=== PATIENT | male | born 1955 | race Caucasian/White ===

== ENCOUNTER 2018-03-16 21:10 | Observation (INO) | payer OTHER ==
[2018-03-16] MEDS ORDERED: diltiaZEM INJ 5 MG/ML VIAL IVP STA ×3 (21:20→23:01)
[2018-03-16] MEDS ORDERED: diltiaZEM INJ 5 MG/ML VIAL ONE ×2 (21:37→22:10)
[2018-03-16 21:47] LABS: BASOPHILS # (AUTO) 0.1 10^3/uL (0.0-0.1); BASOPHILS % (AUTO) 1.1 %; EOSINOPHILS # (AUTO) 0.1 10^3/uL (0.0-0.7); EOSINOPHILS % (AUTO) 0.7 %; HGB - HEMOGLOBIN 15.8 g/dL (14.0-18.0); LYMPHOCYTES % (AUTO) 16.8 %; MEAN CORPUSCULAR HEMOGLOBIN 29.2 pg (27.0-31.0); MEAN CORPUSCULAR HGB CONC 32.8 g/dL (32.0-36.0); MEAN CORPUSCULAR VOLUME 89.1 fL (80.0-94.0); MEAN PLATELET VOLUME 9.3 fL (7.4-11.4); MONOCYTES # (AUTO) 0.9 10^3/uL (0.0-1.0); MONOCYTES % (AUTO) 7.3 %; NEUTROPHILS # (AUTO) 8.9 10^3/uL (1.5-6.6); NEUTROPHILS % (AUTO) 74.1 %; PLT - PLATELET COUNT 210 10^3/uL (130-450)
[2018-03-16] MEDS ORDERED: PROCAINAMIDE 1,000 MG in SODIUM CHLORIDE 0.9% 240 ML IV STA (21:49)
--- NOTE | 2018-03-16 22:02 | ED Physician Documentation ---
PD HPI CHEST PAIN - Stated complaint Stated Complaint: CP - History obtained from History obtained from: Patient, Family - History of Present Illness Timing - onset: Today (About an hour ago he acutely developed what he thought was muscular spasm across the left side of his chest that he never had before. It was not associated with back pain, shortness of breath or fatigue. He has never had this before. He has no history of heart problems. He does have diabetes for which he takes metformin and he also takes aspirin, otherwise he is very healthy. His sister has had atrial fibrillation.) Review of Systems Ten Systems: 10 systems reviewed and negative Constitutional: denies: Fever, Chills Cardiac: reports: Chest pain / pressure. denies: Palpitations, Pedal edema, Calf pain Respiratory: denies: Dyspnea, Cough, Hemoptysis, Wheezing PD PAST MEDICAL HISTORY - Past Medical History Past Medical History: Yes Endocrine/Autoimmune: Type 2 diabetes - Past Surgical History Past Surgical History: No - Allergies Allergies/Adverse Reactions: Allergies Allergy/AdvReac Type Severity Reaction Status Date / Time latex Allergy Unknown Verified 03/16/18 22:06 - Living Situation Living Situation: reports: With spouse/s.o. - Social History Does the pt smoke?: No Does the pt have substance abuse?: No - Family History Family history: reports: Non contributory PD ED PE NORMAL - Vitals Vital signs reviewed: Yes - General General: Alert and oriented X 3, No acute distress - HEENT HEENT: PERRL, EOMI - Neck Neck: Supple, no meningeal sign, No bony TTP - Cardiac Cardiac: Other (Quite rapid and irregular, no murmur) - Respiratory Respiratory: No respiratory distress, Clear bilaterally - Abdomen Abdomen: Normal bowel sounds, Soft, Non tender - Back Back: No CVA TTP, No spinal TTP - Derm Derm: Normal color, Warm and dry - Extremities Extremities: No edema, No calf tenderness / cord - Neuro Neuro: Alert and oriented X 3, Normal speech - Psych Psych: Normal mood, Normal affect Results - Vitals Vitals: Vital Signs - 24 hr 03/16/18 03/16/18 22:15 22:42 Temperature 36.5 C Heart Rate 100 113 H Respiratory 12 20 Rate Blood Pressure 108/79 97/74 Blood Pressure 108/79 [Right] O2 Saturation 96 96 Oxygen O2 Source Room air - EKG (time done) 2115 Rate: Rate (enter#) (156) Rhythm: Atrial fibrillation Brantley: Normal Intervals: Other (Incomplete right bundle and left anterior fascicular block, QRS diameter only 102 ms.) QRS: Normal Ischemia: ST depression Computer interpretation: Agree with computer - Labs Labs: Laboratory Tests 03/16/18 03/16/18 03/16/18 21:17 21:17 21:17 WBC 12.0 H RBC 5.40 Hgb 15.8 Hct 48.1 MCV 89.1 MCH 29.2 MCHC 32.8 RDW 14.0 Plt Count 210 MPV 9.3 Neut # (Auto) 8.9 H Lymph # (Auto) 2.0 [place] # (Auto) 0.9 Eos # (Auto) 0.1 Baso # (Auto) 0.1 Absolute Nucleated RBC 0.00 Nucleated RBC % 0.0 Sodium 139 Potassium 3.9 Chloride 102 Carbon Dioxide 27 Anion Gap 10.0 BUN 26 H Creatinine 1.4 H Estimated GFR (MDRD) 52 L Glucose 126 H Calcium 9.6 Total Bilirubin 1.0 AST 27 ALT 25 Alkaline Phosphatase 65 Troponin I < 0.04 Total Protein 7.8 Albumin 4.3 Globulin 3.5 Albumin/Globulin Ratio 1.2 Lipase 32 TSH 03/16/18 21:17 WBC RBC Hgb Hct MCV MCH MCHC RDW Plt Count MPV Neut # (Auto) Lymph # (Auto) [place] # (Auto) Eos # (Auto) Baso # (Auto) Absolute Nucleated RBC Nucleated RBC % Sodium Potassium Chloride Carbon Dioxide Anion Gap BUN Creatinine Estimated GFR (MDRD) Glucose Calcium Total Bilirubin AST ALT Alkaline Phosphatase Troponin I Total Protein Albumin Globulin Albumin/Globulin Ratio Lipase TSH 3.38 PD MEDICAL DECISION MAKING - ED course ED course: This is a 62-year-old gentleman who presents with A. fib with RVR, presumed initially to be new based on symptoms what sounds like anterior chest wall spasm that she started an hour ago. However on further history he has been dyspneic for a year and as noted irregular heart rates for the last year. Initially my plan was to use an auto of protocol for potential cardioversion but after this further history I stopped the procainamide drip because I am not really sure how long he has been in atrial fibrillation. It was somewhat difficult to control his rate to come in the emergency department he did receive 2 divided doses of diltiazem which improved but not resolved his rate and he was still running 105-125 is a heart rate on the decision to admit, I spoke with Dr. Doty for observation at 11:06 PM. - Sepsis Event Vital Signs: Vital Signs - 24 hr 03/16/18 03/16/18 22:15 22:42 Temperature 36.5 C Heart Rate 100 113 H Respiratory 12 20 Rate Blood Pressure 108/79 97/74 Blood Pressure 108/79 [Right] O2 Saturation 96 96 Oxygen O2 Source Room air Departure - Departure Disposition: ED Place in Observation Clinical Impression: Atrial fibrillation Qualifiers: Atrial fibrillation type: unspecified Qualified Code(s): I48.91 - Unspecified atrial fibrillation Condition: Stable
[2018-03-16 22:04] LABS: ALBUMIN 4.3 g/dL (3.2-5.5); ALBUMIN/GLOBULIN RATIO 1.2 (1.0-2.2); CALCIUM 9.6 mg/dL (8.5-10.3); CREATININE 1.4 mg/dL (0.6-1.2); TOTAL PROTEIN 7.8 g/dL (6.7-8.2)
[2018-03-16] MEDS ORDERED: SODIUM CHLORIDE 0.9% 1,000 ML IV ONE (22:14)
[2018-03-16] MEDS ORDERED: PROCAINAMIDE 1,000 MG/10 ML SYRINGE ONE (22:18)
[2018-03-16] MEDS ORDERED: PROMETHAZINE 25 MG/1 ML VIAL IM PRN (23:22)
[2018-03-16] MEDS ORDERED: IBUPROFEN 600 MG TABLET PO PRN (23:22)
[2018-03-16] MEDS ORDERED: NITROGLYCERIN SL 0.4 MG TABLET SL PRN (23:22)
[2018-03-16] MEDS ORDERED: ONDANSETRON 4 MG/2 ML VIAL IVP PRN (23:22)
[2018-03-16] MEDS ORDERED: PROCHLORPERAZINE 10 MG/2 ML VIAL IVP PRN (23:22)
[2018-03-16] MEDS ORDERED: ZOLPIDEM 5 MG TABLET PO PRN (23:22)
[2018-03-16] MEDS ORDERED: ACETAMINOPHEN 325 MG TABLET PO PRN (23:22)
[2018-03-16] MEDS ORDERED: SODIUM CHLORIDE FLUSH 0.9% 10 ML SYRINGE IVP PRN (23:22)
[2018-03-16] MEDS ORDERED: oxyCODONE 5 MG TABLET PO PRN (23:22)
--- NOTE | 2018-03-17 00:02 | HISTORY & PHYSICAL EXAMINATION ---
Chief Complaint - Chief Complaint Chief Complaint: Chest Pain History of Present Illness - Admitted From Admitted From:: Emergency Department - History Obtained From Records Reviewed: Yes History obtained from: Patient Exam Limitations: None - History of Present Illness HPI Comment/Other: Patient is a 62-year-old gentleman with a past medical history significant for diabetes mellitus type 2 and BPH who presented to the emergency department with a chief complaint of chest pain. 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 He states that his [id number] was having some difficulty with his ambulation and the patient was really having to help out a lot more than normal. He states he was bending down to help him up when he began to notice some tightness across his chest. He states the tightness was across the left side of his chest just under his collarbone. Initially he thought it was just a muscle strain but the tightness began to feel more like a spasm and was constant. He states that it continued for 2 hours at which point he became concerned and came to the emergency department. He denies any radiation of the chest pain. He denies having any nausea, diaphoresis, palpitations or any shortness of breath associated with this chest pain. The patient states that the pain was only may be a 4-5 out of 10. He states it has not improved with coming to the emergency department. He describes the pain as a tightness/spasm in the chest wall. The patient also states that he has noticed that over the last 2 years he has had increasing shortness of breath with exertion. He states that when walking up his driveway to get the mail he notices that he become short of breath. He states that before 2 years ago he never used and noticed this. He states that it has not progressed but has remained stable over the last 2 years. The patient also states that he has a family history of atrial fibrillation and knows that he has a flutter of his heart even though he has never been evaluated for it by a physician. He states that he checks his heart rate from time to time on a pulse oximeter that his [id number] uses. He states that he notices that his heart rate varies and sometimes even gets into the low 100s. The patient states that he does have a primary care physician but has not seen him in more than 4 years. Patient denies any fevers, chills, cough, orthopnea, PND or any lower extremity swelling. He denies any abdominal pain, nausea, vomiting or diarrhea. The patient denies any headaches, blurred vision, runny nose, sore throat, nasal congestion, difficulty swallowing, urinary urgency, urinary frequency, dysuria, joint swelling, joint pain, muscle aches, back pain, neck stiffness, recent unintentional weight loss, changes in his appetite, night sweats, hair loss, polydipsia, polyuria, skin changes or any focal neurologic deficits. On presentation to the emergency department the patient was initially in triage and was noted to have a heart rate in the 160s and was therefore placed on a monitor and placed in high acuity. The patient had initial vital signs which show that he was afebrile, tachycardic with low normal blood pressure and he was not in any respiratory distress. The patient underwent an EKG which showed atrial fibrillation with a rapid ventricular rate of 156. The patient also had ST depressions in the anterolateral leads that were likely related to his elevated heart rate. The patient underwent routine lab work which revealed a troponin of less than 0.04. The patient's TSH was within normal limits. The patient did have a slightly elevated creatinine of 1.4 and did not have any previous creatinine in our system. The patient's WBC was mildly elevated at 12.0. The patient did not undergo a chest x-ray in the emergency department. The patient was given 2 doses of IV diltiazem with which his heart rate did come down but continued to be in the low 100s. Initially the emergency room physician had thought that this was a new onset atrial fibrillation that started tonight and ordered a procainamide drip. However after he discussed further with the patient it appears the patient has known that he has an irregular heart rhythm for some time and this was not new onset therefore he discontinued the procainamide. The patient's heart rate went back up into the 120s and it was decided to place the patient in observation for further rate control and to start anticoagulation and to get an echocardiogram. History - Past Medical History Cardiovascular: reports: High cholesterol, Atrial fibrillation Endocrine/Autoimmune: reports: Type 2 diabetes : reports: Renal insuffiency MRSA Hx?: No - Family & Social History Family History: Sister: Diabetes, Type 2, Other family: Diabetes, Type 1 ( Paternal uncle), [place] (Paternal uncle) Family History Comment/Other: Mother and sister both have atrial fibrillation Living arrangement: At home Living Situation: With spouse/s.o. Social History Notes: The patient was born in [place] but moved to [place] when he was 7 years old and grew up in [place]. He and his moved to [place] and have been living here for some time now. They do not have any children. The patient also lives with his [id number] who has end-stage Alzheimer's dementia. The patient is a primary caregiver for his [id number]-pgr. 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 The patient states he smoked for a very short period of time in his late teens and early 20s but quit at the age of 22. He states he may have smoked some cigarettes since then but would never a heavy smoker. He states that he does drink 1 beer per night and 1 ounce of whiskey 4-5 times a week. He denies any illicit drug use - POLST Patient has POLST: No POLST Status: Full Code Meds/Allgy - Home Medications Home Medications: Ambulatory Orders Medication Instructions Recorded Confirmed Aspirin [Adult Aspirin] 81 mg PO BID 03/17/18 03/17/18 metFORMIN [Glucophage] 850 mg PO BIDWM 03/17/18 03/17/18 - Allergies Allergies/Adverse Reactions: Allergies Allergy/AdvReac Type Severity Reaction Status Date / Time latex Allergy Unknown Verified 03/16/18 22:06 Review of Systems - Other Findings Other Findings: A comprehensive review of systems was performed the pertinent positives and negatives are stated above in the HPI and the remainder of the review of systems is negative. Exam - Vital Signs Reviewed Vital Signs: Yes Vital Signs: Vital Signs x48h Temp Pulse Resp BP BP Pulse Ox 03/16/18 23:52 119 H 19 96 03/16/18 23:10 36.7 C 110 H 18 116/89 H 97 03/16/18 22:42 113 H 20 97/74 96 03/16/18 22:15 36.5 C 100 12 108/79 108/79 96 - Physical Exam General Appearance: positive: No acute distress, Alert Eyes Bilateral: positive: Normal inspection, PERRL, EOMI, No lid inflammation, Conjunctivae nml, No scleral icterus ENT: positive: ENT inspection nml, Pharynx nml, No signs of dehydration. negative: Purulent nasal drainage, Pharyngeal erythema, Oral lesions Neck: positive: Nml inspection, Thyroid nml, No JVD, Trachea midline. negative : Thyromegaly, Lymphadenopathy (R), Lymphadenopathy (L), Carotid bruit, Tracheal deviation Respiratory: positive: Chest non-tender, No respiratory distress, Breath sounds nml. negative: Wheezes, Rales, Rhonchi Cardiovascular: positive: No murmur, No gallop, Irregularly irregular, Tachycardia Peripheral Pulses: positive: 2+ Abdomen: positive: Non-tender, No organomegaly, Nml bowel sounds, No distention. negative: Guarding, Rebound, Hepatomegaly Back: positive: Nml inspection. negative: CVA tenderness (R), CVA tenderness (L ) Skin: positive: Color nml, No rash, Warm, Dry. negative: Cyanosis, Diaphoresis , Pallor, Skin rash Extremities: positive: Non-tender, Full ROM, Nml appearance, No pedal edema Neurologic/Psychiatric: positive: Oriented x3, CN's nml (2-12), Motor nml, Sensation nml, Mood/affect nml Conclusion/Plan - Problem List (1) Chest pain Conclusion/Plan: The patient presented with chest pain that started 2 hours prior to arrival. The patient described the chest pain as tightness or spasm. He stated that it was located on the left side of his chest under his collarbone. He was concerned that it may have been from a strained muscle after he was doing some activity during the day. The patient states that the pain has persisted. On presentation the patient was found to be in atrial fibrillation with a rapid ventricular rate in the 160s. The patient's chest pain is likely secondary to the atrial fibrillation however we could not completely rule out acute coronary syndrome at this time. The patient's initial troponin was negative. The patient's initial EKG with a heart rate of 160 and atrial fibrillation showed some anterolateral ST depressions. Plan: Serial troponins x3 Telemetry monitoring Nitroglycerin when necessary for chest pain Aspirin Lipitor Echo Qualifiers: Chest pain type: unspecified Qualified Code(s): R07.9 - Chest pain, unspecified (2) Atrial fibrillation with RVR Conclusion/Plan: Patient presented to the emergency department with chest pain and was found to have heart rate in the 160s. The patient's EKG revealed atrial fibrillation with a rapid ventricular rate and anterolateral ST depressions. The patient's initial troponin was negative. Patient's TSH was normal. The patient was given several doses of IV diltiazem and although rate improved it went back up. Initially patient was going to be given procainamide for chemical cardioversion however patient stated that he believes he has been in atrial fibrillation for many years. Therefore procainamide was stopped. Patient continued to be in a rapid ventricular rate therefore he was placed in observation. Chads 2 score is 1 Plan: Start patient on Xarelto and continue until he is able to see a director of health care marketing and be evaluated for possible cardioversion. Rate control with p.o. and IV diltiazem currently heart rate is in the 120s does not appear the patient needs a drip at this time therefore he will be placed in observation. Echocardiogram Serial troponins (3) Diabetes mellitus Conclusion/Plan: Patient has a history of type 2 diabetes and is on metformin at home. While the patient is hospitalized Metformin will be held. Patient will be placed on a diabetic diet and sliding scale insulin. We will also check the patient's hemoglobin A1c. Patient's glucose will be checked before meals at bedtime. Qualifiers: Diabetes mellitus type: type 2 Diabetes mellitus custodial insulin use: without credit union field examiner use Diabetes mellitus complication status: with kidney complications Diabetes mellitus complication detail: with chronic kidney disease Chronic kidney disease stage: stage 2 (mild) Qualified Code(s): E11.22 - Type 2 diabetes mellitus with diabetic chronic kidney disease; N18.2 - Chronic kidney disease, stage 2 (mild); N18.2 - Chronic kidney disease, stage 2 (mild) (4) Renal insufficiency Conclusion/Plan: Patient appears to have renal insufficiency with a creatinine of 1.4. It is unclear if this is acute kidney injury or chronic kidney disease. The patient does have risk factor for chronic kidney disease with diabetes. Patient denies any recent diarrhea, vomiting or decreased fluid intake. Patient does not appear dehydrated on examination. It is possible if patient was in rapid ventricular rate for some time that he has had poor blood flow to the kidneys and that could have resulted in acute renal insufficiency. More likely however the patient has chronic kidney disease from his diabetes and has CKD stage II. Plan: Patient will be given IV fluids We will monitor the patient's creatinine We will avoid any nephrotoxic agents. - Lab Results Lab results reviewed: Yes Fish Bones: 03/16/18 21:17 03/16/18 21:17 Other Lab Results: Laboratory Results WBC 12.0 x10^3/uL (4.8-10.8) H 03/16/18 21:17 RBC 5.40 10^6/uL (4.70-6.10) 03/16/18 21:17 Hgb 15.8 g/dL (14.0-18.0) 03/16/18 21:17 Hct 48.1 % (42.0-52.0) 03/16/18 21:17 MCV 89.1 fL (80.0-94.0) 03/16/18 21:17 MCH 29.2 pg (27.0-31.0) 03/16/18 21:17 MCHC 32.8 g/dL (32.0-36.0) 03/16/18 21:17 RDW 14.0 % (12.0-15.0) 03/16/18 21:17 Plt Count 210 10^3/uL (130-450) 03/16/18 21:17 MPV 9.3 fL (7.4-11.4) 03/16/18 21:17 Neut # (Auto) 8.9 10^3/uL (1.5-6.6) H 03/16/18 21:17 Lymph # (Auto) 2.0 10^3/uL (1.5-3.5) 03/16/18 21:17 [place] # (Auto) 0.9 10^3/uL (0.0-1.0) 03/16/18 21:17 Eos # (Auto) 0.1 10^3/uL (0.0-0.7) 03/16/18 21:17 Baso # (Auto) 0.1 10^3/uL (0.0-0.1) 03/16/18 21:17 Absolute Nucleated RBC 0.00 x10^3/uL 03/16/18 21:17 Nucleated RBC % 0.0 /100WBC 03/16/18 21:17 Sodium 139 mmol/L (135-145) 03/16/18 21:17 Potassium 3.9 mmol/L (3.5-5.0) 03/16/18 21:17 Chloride 102 mmol/L (101-111) 03/16/18 21:17 Carbon Dioxide 27 mmol/L (21-32) 03/16/18 21:17 Anion Gap 10.0 (6-13) 03/16/18 21:17 BUN 26 mg/dL (6-20) H 03/16/18 21:17 Creatinine 1.4 mg/dL (0.6-1.2) H 03/16/18 21:17 Estimated GFR (MDRD) 52 (>89) L 03/16/18 21:17 Glucose 126 mg/dL (70-100) H 03/16/18 21:17 Calcium 9.6 mg/dL (8.5-10.3) 03/16/18 21:17 Total Bilirubin 1.0 mg/dL (0.2-1.0) 03/16/18 21:17 AST 27 IU/L (10-42) 03/16/18 21:17 ALT 25 IU/L (10-60) 03/16/18 21:17 Alkaline Phosphatase 65 IU/L (42-121) 03/16/18 21:17 Troponin I < 0.04 ng/mL (<0.49) 03/16/18 21:17 Total Protein 7.8 g/dL (6.7-8.2) 03/16/18 21:17 Albumin 4.3 g/dL (3.2-5.5) 03/16/18 21:17 Globulin 3.5 g/dL (2.1-4.2) 03/16/18 21:17 Albumin/Globulin Ratio 1.2 (1.0-2.2) 03/16/18 21:17 Lipase 32 U/L (22-51) 03/16/18 21:17 TSH 3.38 uIU/mL (0.34-5.60) 03/16/18 21:17 - EKG Results EKG Interpreted Independently: Yes EKG Findings: Atrial fibrillation with rapid ventricular rate of 158. Anterolateral ST depressions. No ST elevations. Core Measures - Anticipated LOS I expect patient to be DC'd or transferred within 96 hours.: Yes - DVT/VTE - Prophylaxis VTE/DVT Device ordered at admit?: Yes
[2018-03-17] MEDS: SODIUM CHLORIDE 0.9% 1,000 ML IV SCH ×2 (00:46→10:50)
[2018-03-17] MEDS: SODIUM CHLORIDE FLUSH 0.9% 10 ML SYRINGE IVP SCH ×4 (00:47→21:33)
[2018-03-17] MEDS: ATORVASTATIN 40 MG TABLET PO SCH ×2 (00:58→21:33)
[2018-03-17] MEDS: RIVAROXABAN 10 MG TABLET PO SCH ×2 (00:58→18:44)
[2018-03-17] MEDS: diltiaZEM CD 120 MG CAPSULE PO SCH ×3 (00:58→21:33)
[2018-03-17] MEDS: ASPIRIN 325 MG TABLET PO SCH ×2 (00:58→08:37)
--- NOTE | 2018-03-17 01:30 | XRAY Report ---
Procedure Date: 03/17/2018 Accession Number: [id number] / [id number] Procedure: XR - Chest 1 View X-Ray CPT Code: 20522 FULL RESULT: EXAM: CHEST RADIOGRAPHY EXAM DATE: 03/17/2018 01:19 AM. CLINICAL HISTORY: Chest pain. COMPARISON: None. TECHNIQUE: 1 view. FINDINGS: Lungs/Pleura: No focal opacities evident. No pleural effusion. No pneumothorax. Mediastinum: Within exam limitations, the cardiomediastinal contour is normal. Other: None. IMPRESSION: Normal single view chest. RADIA
[2018-03-17] MEDS ORDERED: diltiaZEM INJ 5 MG/ML VIAL IVP SCH (03:20)
[2018-03-17 04:39] LABS: BASOPHILS # (AUTO) 0.1 10^3/uL (0.0-0.1); EOSINOPHILS # (AUTO) 0.1 10^3/uL (0.0-0.7); EOSINOPHILS % (AUTO) 0.6 %; HGB - HEMOGLOBIN 14.1 g/dL (14.0-18.0); LYMPHOCYTES # (AUTO) 1.5 10^3/uL (1.5-3.5); LYMPHOCYTES % (AUTO) 11.7 %; MEAN CORPUSCULAR HEMOGLOBIN 29.2 pg (27.0-31.0); MEAN CORPUSCULAR HGB CONC 32.8 g/dL (32.0-36.0); MEAN CORPUSCULAR VOLUME 89.1 fL (80.0-94.0); MEAN PLATELET VOLUME 8.8 fL (7.4-11.4); MONOCYTES # (AUTO) 0.9 10^3/uL (0.0-1.0); MONOCYTES % (AUTO) 7.1 %; NEUTROPHILS # (AUTO) 9.9 10^3/uL (1.5-6.6); NEUTROPHILS % (AUTO) 79.6 %; PLT - PLATELET COUNT 159 10^3/uL (130-450); RED BLOOD COUNT 4.84 10^6/uL (4.70-6.10); RED CELL DISTRIBUTION WIDTH 14.1 % (12.0-15.0); WHITE BLOOD COUNT 12.4 x10^3/uL (4.8-10.8)
[2018-03-17 04:53] LABS: ALBUMIN 3.6 g/dL (3.2-5.5); ALBUMIN/GLOBULIN RATIO 1.2 (1.0-2.2); ALKALINE PHOSPHATASE 57 IU/L (42-121); ALT ALANINE AMINOTRANSFERASE 20 IU/L (10-60); AST ASPARTATE AMINOTRANSFERASE 18 IU/L (10-42); BILIRUBIN,TOTAL 0.7 mg/dL (0.2-1.0); BUN - BLOOD UREA NITROGEN 23 mg/dL (6-20); CALCIUM 8.4 mg/dL (8.5-10.3); CARBON DIOXIDE - CO2 21 mmol/L (21-32); CHLORIDE 105 mmol/L (101-111); CHOL/HDL RATIO 5.1 (<5.0); CHOLESTEROL 199 mg/dL; CREATININE 1.2 mg/dL (0.6-1.2); GFR - MDRD 62 (>89); GLUCOSE 129 mg/dL (70-100); HDL CHOLESTEROL 39 mg/dL; LDL CHOLESTEROL,CALCULATED 135 mg/dL; LDL/HDL RATIO 3.5 (<3.6); SODIUM 135 mmol/L (135-145); TOTAL PROTEIN 6.5 g/dL (6.7-8.2); VLDL CHOLESTEROL 25 mg/dL
[2018-03-17 04:58] LABS: HB2 TOTAL 15.6 g/dL; HEMOGLOBIN A1C 0.7 g/dL; HEMOGLOBIN A1C % 6.3 % (4.6-6.2)
[2018-03-17] MEDS: FAMOTIDINE 20 MG TABLET PO SCH (08:37)
[2018-03-17] MEDS: INSULIN ASPART 300 UNIT/3 ML PEN SUBQ SCH ×4 (08:38→21:33)
[2018-03-17] MEDS: POLYETHYLENE GLYCOL 3350 17 GM PACKET PO SCH (08:38)
[2018-03-17] MEDS ORDERED: LISINOPRIL 5 MG TABLET PO SCH (12:00)
[2018-03-17] MEDS: CARVEDILOL 3.125 MG TABLET PO SCH ×2 (12:50→21:33)
--- NOTE | 2018-03-17 18:25 | PROVIDER PROGRESS NOTE ---
Assessment/Plan - Problem List (1) Chest pain Qualifiers: Chest pain type: unspecified Qualified Code(s): R07.9 - Chest pain, unspecified Assessment/Plan: Trops are WNL. Possibly due to CAD vs cardiac enlargement and rsised LVEDP, see Echo rsiult discussed below. Continue ASA, statin, prn Nitrates. Will get Lexiscan Stress test with MPI tomorow. Pt agreeable. (2) Atrial fibrillation with RVR Assessment/Plan: Hr is still 130-150 with activity in room. Will increase Cardizem and B-blockers. Since his CHADS scor is now 2 (CHF and DM), continue NOAC, Xarelto. (3) Renal insufficiency Assessment/Plan: Possibly from hypoperfusion in RVR or DM induced. Follow daily labs. (4) Diabetes mellitus Qualifiers: Diabetes mellitus type: type 2 Diabetes mellitus group home insulin use: without group home use Diabetes mellitus complication status: with kidney complications Diabetes mellitus complication detail: with chronic kidney disease Chronic kidney disease stage: stage 2 (mild) Qualified Code(s): E11.22 - Type 2 diabetes mellitus with diabetic chronic kidney disease; N18.2 - Chronic kidney disease, stage 2 (mild); N18.2 - Chronic kidney disease, stage 2 (mild) Assessment/Plan: A1c is 7.8 and triglycerides are not very elevated. Pt described to me his ketosis diet for weight loss and glu control. Continue DM diet, glu monitoring and ss Insulin. (5) Acute systolic heart failure, first episode Assessment/Plan: Echo today reveals global hypokinesis with severely depressed LVEF of 25%. This would be consistent with tachycardia-induced Cardiomyopathy vs balanced CAD/ ischemia. Continue B-meghana, start PIEDAD-I, stop iv fluids and will need DCh on Spironolactone. Obtain Stress test to evaluate for CAD. - Current Meds Current Meds: Current Medications Generic Name Dose Route Start Last Admin Trade Name Freq PRN Reason Stop Dose Admin Atorvastatin Calcium 80 mg 03/17/18 01:00 03/17/18 00:58 Lipitor PO 80 mg QPM LALA Administration Carvedilol 6.25 mg 03/17/18 12:00 03/17/18 12:50 Coreg PO 6.25 mg BID LALA Administration Famotidine 20 mg 03/17/18 09:00 03/17/18 08:37 Pepcid PO 20 mg DAILY LALA Administration Insulin Aspart 1 - 5 unit 03/17/18 08:00 03/17/18 16:53 Novolog SUBQ Not Given 0800,1200,1700,2100 [facility] Protocol Lisinopril 2.5 mg 03/17/18 12:00 03/17/18 12:49 Zestril PO 2.5 mg 1200 [facility] Administration Polyethylene Glycol 17 gm 03/17/18 09:00 03/17/18 08:38 Miralax PO Not Given DAILY LALA Rivaroxaban 20 mg 03/16/18 23:45 03/17/18 00:58 Xarelto PO 20 mg 1700 [facility] Administration Sodium Chloride 10 ml 03/17/18 01:00 03/17/18 08:38 Normal Saline Flush 0.9% IVP Not Given 0100,0900,1700 [facility] - Lab Result Fish Bone Diagrams: 03/17/18 04:25 03/17/18 04:25 - Additional Planning My Orders: My Active Orders 03/17/18 11:09 Myocardial Perfusion STR/RST [NM] Routine 03/17/18 11:12 Telemetry- [RC] Q4HR 03/17/18 11:15 Miscellaenous Nursing Order [RC] QSHIFT 03/17/18 12:00 Carvedilol [Coreg] 6.25 mg PO BID Lisinopril [Zestril] 2.5 mg PO 1200 03/17/18 17:00 Triamcinolone [Nasacort Aq] 2 sprays YEHUDA DAILY 03/17/18 21:00 Aspirin EC [Ecotrin] 81 mg PO BID diltiaZEM CD [Cardizem Cd] 120 mg PO BID 03/18/18 00:01 NPO [DIET] Subjective - Subjective Patient Reports: Feeling Better, Resting Comfortably, No Complaints Nursing Reports: Other (No CP since admitted and mostly at rest.) Objective Vital Signs: Vital Signs - 24 hr 03/16/18 03/17/18 03/17/18 23:52 00:32 03:41 Temperature 36.4 C L Heart Rate 119 H Heart Rate [ 130 H Brachial] Heart Rate [ Monitoring electrodes] Respiratory 19 18 Rate Blood Pressure 117/75 Blood Pressure 119/92 H [Right Brachial artery] O2 Saturation 96 96 03/17/18 03/17/18 03/17/18 03:45 03:51 03:56 Temperature Heart Rate Heart Rate [ 117 H 95 65 Brachial] Heart Rate [ 105 H 99 99 Monitoring electrodes] Respiratory Rate Blood Pressure Blood Pressure 106/70 102/74 99/78 [Right Brachial artery] O2 Saturation 03/17/18 03/17/18 03/17/18 04:01 04:06 04:15 Temperature Heart Rate Heart Rate [ 52 L 91 84 Brachial] Heart Rate [ 80 90 86 Monitoring electrodes] Respiratory Rate Blood Pressure Blood Pressure 109/78 104/76 108/72 [Right Brachial artery] O2 Saturation 03/17/18 03/17/18 03/17/18 04:30 04:45 08:00 Temperature 36.8 C 36.5 C Heart Rate Heart Rate [ 95 95 112 H Brachial] Heart Rate [ 107 H 103 H Monitoring electrodes] Respiratory 16 14 Rate Blood Pressure Blood Pressure 114/71 104/74 126/86 H [Right Brachial artery] O2 Saturation 97 03/17/18 15:57 Temperature 36.5 C Heart Rate Heart Rate [ Brachial] Heart Rate [ 94 Monitoring electrodes] Respiratory 18 Rate Blood Pressure Blood Pressure 116/90 H [Right Brachial artery] O2 Saturation 96 Oxygen O2 Source Room air I&O (Last 24 Hrs): Intake and Output Totals x24h 03/15/18 03/16/18 03/17/18 23:59 23:59 23:59 Intake Total 2705 Output Total 2375 Balance 330 General: Alert, Oriented x3 HEENT: Mucous membr. moist/pink Neck: Supple, No JVD Neuro: Non Focal Cardiovascular: Regular rate, No murmurs Respiratory: No respiratory distress, Breath sounds nml Abdomen: Soft Extremities: No edema - Results Results: Laboratory Results WBC 12.4 x10^3/uL (4.8-10.8) H 03/17/18 04:25 RBC 4.84 10^6/uL (4.70-6.10) 03/17/18 04:25 Hgb 14.1 g/dL (14.0-18.0) 03/17/18 04:25 Hct 43.1 % (42.0-52.0) 03/17/18 04:25 MCV 89.1 fL (80.0-94.0) 03/17/18 04:25 MCH 29.2 pg (27.0-31.0) 03/17/18 04:25 MCHC 32.8 g/dL (32.0-36.0) 03/17/18 04:25 RDW 14.1 % (12.0-15.0) 03/17/18 04:25 Plt Count 159 10^3/uL (130-450) 03/17/18 04:25 MPV 8.8 fL (7.4-11.4) 03/17/18 04:25 Neut # (Auto) 9.9 10^3/uL (1.5-6.6) H 03/17/18 04:25 Lymph # (Auto) 1.5 10^3/uL (1.5-3.5) 03/17/18 04:25 Jewell # (Auto) 0.9 10^3/uL (0.0-1.0) 03/17/18 04:25 Eos # (Auto) 0.1 10^3/uL (0.0-0.7) 03/17/18 04:25 Baso # (Auto) 0.1 10^3/uL (0.0-0.1) 03/17/18 04:25 Absolute Nucleated RBC 0.01 x10^3/uL 03/17/18 04:25 Nucleated RBC % 0.0 /100WBC 03/17/18 04:25 Sodium 135 mmol/L (135-145) 03/17/18 04:25 Potassium 3.9 mmol/L (3.5-5.0) 03/17/18 04:25 Chloride 105 mmol/L (101-111) 03/17/18 04:25 Carbon Dioxide 21 mmol/L (21-32) 03/17/18 04:25 Anion Gap 9.0 (6-13) 03/17/18 04:25 BUN 23 mg/dL (6-20) H 03/17/18 04:25 Creatinine 1.2 mg/dL (0.6-1.2) 03/17/18 04:25 Estimated GFR (MDRD) 62 (>89) L 03/17/18 04:25 Glucose 129 mg/dL (70-100) H 03/17/18 04:25 POC Whole Bld Glucose 137 mg/dL (70 - 100) H 03/17/18 16:47 Glycated Hemoglobin 6.3 % (4.6-6.2) H 03/17/18 04:25 Estim Average Glucose 134 (70-100) H 03/17/18 04:25 Calcium 8.4 mg/dL (8.5-10.3) L 03/17/18 04:25 Total Bilirubin 0.7 mg/dL (0.2-1.0) 03/17/18 04:25 AST 18 IU/L (10-42) 03/17/18 04:25 ALT 20 IU/L (10-60) 03/17/18 04:25 Alkaline Phosphatase 57 IU/L (42-121) 03/17/18 04:25 Troponin I < 0.04 ng/mL (<0.49) 03/17/18 10:24 B-Natriuretic Peptide 532 pg/mL (5-100) H 03/17/18 04:25 Total Protein 6.5 g/dL (6.7-8.2) L 03/17/18 04:25 Albumin 3.6 g/dL (3.2-5.5) 03/17/18 04:25 Globulin 2.9 g/dL (2.1-4.2) 03/17/18 04:25 Albumin/Globulin Ratio 1.2 (1.0-2.2) 03/17/18 04:25 Triglycerides 126 mg/dL (-149) 03/17/18 04:25 Cholesterol 199 mg/dL (-199) 03/17/18 04:25 LDL Cholesterol, Calc 135 mg/dL (-129) H 03/17/18 04:25 VLDL Cholesterol 25 mg/dL 03/17/18 04:25 HDL Cholesterol 39 mg/dL (60-) L 03/17/18 04:25 LDL/HDL Ratio 3.5 (<3.6) 03/17/18 04:25 Cholesterol/HDL Ratio 5.1 (<5.0) 03/17/18 04:25 Lipase 32 U/L (22-51) 03/16/18 21:17 TSH 3.38 uIU/mL (0.34-5.60) 03/16/18 21:17 ABX Reporting Has patient been on IV antibiotics over the past 48 hours?: No
[2018-03-17] MEDS: TRIAMCINOLONE 55 MCG NASAL SPRAY NAS SCH (18:44)
[2018-03-17] MEDS: ASPIRIN EC 81 MG TABLET PO SCH (21:33)
[2018-03-18] MEDS ORDERED: ASPIRIN EC 81 MG TABLET PO SCH (09:00)
[2018-03-18] MEDS: INSULIN ASPART 300 UNIT/3 ML PEN SUBQ SCH ×2 (09:27→17:01)
[2018-03-18] MEDS: CARVEDILOL 3.125 MG TABLET PO SCH (09:27)
[2018-03-18] MEDS: TRIAMCINOLONE 55 MCG NASAL SPRAY NAS SCH (09:28)
[2018-03-18] MEDS: ASPIRIN EC 81 MG TABLET PO SCH (09:28)
[2018-03-18] MEDS: diltiaZEM CD 120 MG CAPSULE PO SCH (09:28)
[2018-03-18] MEDS: SODIUM CHLORIDE FLUSH 0.9% 10 ML SYRINGE IVP SCH ×2 (09:28→17:01)
[2018-03-18] MEDS: FAMOTIDINE 20 MG TABLET PO SCH (09:28)
[2018-03-18] MEDS: POLYETHYLENE GLYCOL 3350 17 GM PACKET PO SCH (09:31)
[2018-03-18] MEDS ORDERED: REGADENOSON 0.4 MG/5 ML SYRINGE IVP ONE (10:02)
--- NOTE | 2018-03-18 13:15 | CARDIAC PROCEDURE NOTE ---
DATE OF SERVICE: 03/18/2018 Physician: Nay Gimenez MD PROCEDURE: This is a pharmaceutical stress test performed on a patient. INDICATIONS: New onset of chest pain and new onset atrial fibrillation. RESTING EKG: Atrial fibrillation, ventricular rate 80-90, LVH voltage, symmetrically deeply inverted inferior T waves, and inverted T waves in V3 through V5. PROCEDURE: After signing informed consent, Lexiscan was injected per protocol. The patient had brief shortness of breath, no other side effects, and no recurrence of his chest pressure. Resting blood pressure 106/60, peak blood pressure 108/60. Resting heart rate 80 , peak heart rate 96. EKG at peak showed no new ST or T-wave changes. IMPRESSION: Nondiagnostic by EKG criteria due to baseline marked EKG abnormality. Nuclear images reported separately. TD: 03/18/2018 11:44 MTDD
--- NOTE | 2018-03-18 13:37 | Nuclear Medicine Report ---
REVISED: THIS REPORT WAS ORIGINALLY SIGNED ON 03/18/2018 @ 1338. THE DATE OF SERVICE REVISED ON 03/28/2018. Procedure Date: 03/18/2018 Accession Number: [id number] / [id number] Procedure: NM - Myocardial Perfusion STR/RST CPT Code: FULL RESULT: EXAM: SINGLE-ISOTOPE PHARMACOLOGICAL STRESS TEST WITH REGADENOSON. SINGLE-ISOTOPE AND ONE-DAY REST/STRESS MYOCARDIAL PERFUSION SCANS WITH TOMOGRAPHIC IMAGING, QUANTITATIVE ANALYSIS, WALL MOTION ANALYSIS AND CALCULATION OF EJECTION FRACTION. EXAM DATE: 03/18/2018 12:58 PM. CLINICAL HISTORY: Angina, New cardiomyopathy. COMPARISON: None available. TECHNIQUE: After the intravenous administration of 11 mCi of Tc-99m sestamibi, a rest myocardial perfusion scan was done with tomography. Motion correction was applied when appropriate. After an appropriate delay, pharmacological stress was performed with the infusion of 0.4 mg regadenoson per protocol. According to protocol, 40.9 mCi of Tc-99m sestamibi was injected for stress myocardial perfusion scan. Motion correction was applied when appropriate. Gated tomographic images were obtained for wall motion analysis and computation of left ventricular ejection fraction. FINDINGS: The EKG findings are not provided to me. Images show a small, mild, fixed defect involving the inferior apex and mid-to distal inferior wall. There is a small, mild, partially fixed and partially reversible defect in the mid anteroseptal wall. No other convincing fixed or reversible perfusion defects. Computer generated stress scores: Summed stress score 4 Summed rest score 2 Summed difference score 2 Wall motion analysis demonstrates diffuse hypokinesis. The left ventricular end-diastolic volume is 160 cc. The left ventricular end-systolic volume is 108 cc. The left ventricular ejection fraction is calculated to be 32%. IMPRESSION: 1. Small, mild, fixed defect in the inferior apex and mid-to distal inferior wall. Small, mild, partially fixed and partially reversible defect in the mid anteroseptal wall. 2. Left ventricular ejection fraction of 32%. 3. Diffuse hypokinesis. 4. Left ventricle size within normal limits. 5. Based on the computer generated stress scores, mildly abnormal exam with mild ischemia. RADIA The call report notification system was initiated by Dr. Enrique Langston at 13:32 hrs on 03/18/18. The above findings were discussed with Dr Nay Gimenez by Dr. Enrique Langston at 13:35 hrs on 03/18/18. [facility]
[2018-03-18] MEDS: RIVAROXABAN 10 MG TABLET PO SCH (17:01)
--- NOTE | 2018-03-18 17:51 | Discharge Plan ---
Discharge Plan Disposition: 02 Transfer Acute Care Hosp Condition: Stable Diet: Diabetic No Smoking: If you smoke, Please STOP! Call for help. Follow-up with: Gigi Tidwell MD [Primary Care Provider] -
[2018-03-18] MEDS ORDERED: cloNIDine 0.1 MG PATCH TOP SCH (18:00)
[2018-03-18 19:16] VITALS: BP 100/62
--- NOTE | 2018-03-26 00:48 | DISCHARGE SUMMARY ---
Physician: Nay Gimenez MD DATE OF ADMISSION: 03/16/2018 DATE OF DISCHARGE: 03/18/2018 HISTORY OF PRESENT ILLNESS: This is a 62-year-old white male with a history of type 2 diabetes on Glucophage, possible afib in the past, he takes an adult aspirin daily, history of naturopathic treatments with various vitamins and supplements. 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 He also admitted to about a year's worth of significantly worsening dyspnea on exertion, such as when taking the garbage out to the street. He presented with the complaint of chest pain, and placed in Observation for further evaluation. In the emergency room, he was found to be in atrial fibrillation with a rate in the 140s to 160s. HOSPITAL COURSE AND DISCHARGE DIAGNOSES 1. Unstable angina. The patient's exertional pain had already resolved on presentation to the emergency room, and there were no further episodes of angina. The patient had normal troponin values x3. He underwent a pharmaceutical stress test with Lexiscan and nuclear imaging. The baseline EKG showed atrial fibrillation with rates of 80-90 , left ventricular hypertrophy voltage, deeply symmetrically inverted T waves inferiorly and in V3 through V5. The patient had only brief shortness of breath, no chest pain with the Lexiscan stress, and his EKG had no new ST or T-wave changes. The nuclear portion of the scan revealed left ventricular ejection fraction of 32%, a small fixed defect in the inferior apex and mid to distal inferior wall, and a partially reversible defect in the mid anteroseptal wall. Because of these significant abnormal findings, the patient was sent in transfer by [facility] for coronary angiogram to an accepting director of nurses registry at [facility] in [place]. 2. New onset of atrial fibrillation with rapid ventricular response. Whether this is new atrial fibrillation was unclear; however, the rapid rate was treated with several intravenous doses of diltiazem and then p.o. diltiazem. His TSH level was normal. His troponin levels were normal. A resting Echo was done even before the stress test, which revealed severe global hypokinesis, ejection fraction of 25% and also dilated right ventricle with moderately reduced function, PA pressure of 57 mmHg, moderate mitral regurgitation, and [id number] tricuspid regurgitation. After this finding, his aspirin was decreased to a baby aspirin daily, and he was started on Xarelto for stroke prophylaxis in a patient in atrial fibrillation with a CHADS score of 2 (CHF and diabetes). The plan was to stop the Xarelto 12-24 hours before the scheduled coronary angiogram at the other hospital. 3. Acute systolic heart failure, [place] [employer] Class III. The Echo findings, as described above, were new. The patient was started on spironolactone, beta meghana, and PIEDAD inhibitor. Further evaluation with left heart catheterization is pending during the angiogram. 4. Non-insulin dependent diabetes. The patient was on Glucophage, which was stopped for this hospitalization. He was put on a carb-controlled diet and sliding scale insulin coverage. LABORATORY AND IMAGING: Reviewed and summarized above. ALLERGIES: LATEX. MEDICATIONS AT THE TIME OF TRANSFER 1. Diltiazem CD 120 mg p.o. daily. 2. Lipitor 80 mg q. p.m. 3. Aspirin 81 mg daily. 4. Carvedilol 6.25 mg b.i.d. 5. Lisinopril 2.5 mg daily at noon. 6. Clonidine patch 0.1 mg topically weekly. 7. Xarelto 20 mg p.o. daily with dinner. 8. Sliding scale insulin coverage. 9. MiraLAX daily. 10. Nasacort spray daily. 11. Sublingual nitroglycerin p.r.n. angina. 12. Zofran p.r.n. 13. Oxycodone p.r.n. 14. Compazine p.r.n. 15. Zolpidem 5 mg p.r.n. insomnia. PHYSICAL EXAMINATION AT DISCHARGE VITAL SIGNS: Blood pressure 112/81, heart rate 64 in afib, afebrile, room air saturation 97%. HEENT: Unremarkable. NECK: Without JVD or carotid bruits. CHEST: Clear. HEART: Sounds irregular and with a I-II/ systolic murmur heard at the base. No RV heave. No gallop. ABDOMEN: Soft and benign. EXTREMITIES: Without clubbing, cyanosis, or edema. NEUROLOGIC: Intact. FOLLOWUP: This will be determined after results from his coronary angiogram to be done at [facility]. CODE STATUS: FULL CODE. Time required to complete this entire discharge, chart review, contact of accepting director of nurses registry: 45 minutes. cc: Gigi Tidwell MD TD: 03/25/2018 20:42 MTDD
== END 2018-03-18 19:40 | disposition short-term general hospital (02) ==
LOC: ED 21:10 → OBS 23:22
PROVIDERS: ADMIT Internal Medicine; ATTEND Internal Medicine
DX: I20.0 Unstable angina (principal); I50.21 Acute systolic (congestive) heart failure; I08.1 Rheumatic disorders of both mitral and tricuspid valves; I48.91 Unspecified atrial fibrillation; E11.22 Type 2 diabetes mellitus with diabetic chronic kidney disease; N18.2 Chronic kidney disease, stage 2 (mild); Q21.9 Congenital malformation of cardiac septum, unspecified; Z79.84 Long term (current) use of oral hypoglycemic drugs; Z79.82 Long term (current) use of aspirin; Z82.49 Family history of ischemic heart disease and other diseases of the circulatory system; Z87.891 Personal history of nicotine dependence
CPT/HCPCS: 36415; 71045; 78452; 80053; 80061; 83036; 83690; 83880; 84443; 84484; 85025; 93005; 93017; 93306; 96361; 96365; 96366; 96375; 96376; 99218; 99284; 99285; A9270; A9500; J2690; J2785; 83721

== ENCOUNTER 2018-10-08 15:32 | Outpatient (CLI) | payer MEDICAID ==
[2018-10-08 15:58] LABS: CALCIUM 9.3 mg/dL (8.5-10.3); CREATININE 1.1 mg/dL (0.6-1.2)
== END 2018-10-08 15:33 | disposition home or self-care (01) ==
LOC: LAB 15:32
PROVIDERS: ATTEND Internal Medicine Cardiovascular Disease
DX: I48.91 Unspecified atrial fibrillation (principal); I48.3 Typical atrial flutter
CPT/HCPCS: 36415; 80048

== ENCOUNTER 2019-02-17 10:23 | Outpatient (CLI) | payer MEDICAID ==
[2019-02-17 18:26] LABS: BASOPHILS # (AUTO) 0.1 10^3/uL (0.0-0.1); EOSINOPHILS # (AUTO) 0.1 10^3/uL (0.0-0.7); EOSINOPHILS % (AUTO) 1.1 %; HGB - HEMOGLOBIN 13.9 g/dL (14.0-18.0); LYMPHOCYTES # (AUTO) 0.9 10^3/uL (1.5-3.5); LYMPHOCYTES % (AUTO) 11.7 %; MEAN CORPUSCULAR HEMOGLOBIN 29.3 pg (27.0-31.0); MEAN CORPUSCULAR HGB CONC 33.6 g/dL (32.0-36.0); MEAN CORPUSCULAR VOLUME 87.3 fL (80.0-94.0); MEAN PLATELET VOLUME 7.8 fL (7.4-11.4); MONOCYTES % (AUTO) 12.9 %; NEUTROPHILS # (AUTO) 5.6 10^3/uL (1.5-6.6); NEUTROPHILS % (AUTO) 73.3 %; PLT - PLATELET COUNT 181 10^3/uL (130-450); RED BLOOD COUNT 4.75 10^6/uL (4.70-6.10); RED CELL DISTRIBUTION WIDTH 13.4 % (12.0-15.0); WHITE BLOOD COUNT 7.7 x10^3/uL (4.8-10.8)
[2019-02-17 18:40] LABS: ALBUMIN 4.2 g/dL (3.2-5.5); ALBUMIN/GLOBULIN RATIO 1.4 (1.0-2.2); ALKALINE PHOSPHATASE 59 IU/L (42-121); ALT ALANINE AMINOTRANSFERASE 17 IU/L (10-60); AST ASPARTATE AMINOTRANSFERASE 19 IU/L (10-42); BILIRUBIN,TOTAL 0.9 mg/dL (0.2-1.0); BUN - BLOOD UREA NITROGEN 22 mg/dL (6-20); CALCIUM 9.2 mg/dL (8.5-10.3); CARBON DIOXIDE - CO2 24 mmol/L (21-32); CHLORIDE 104 mmol/L (101-111); CHOL/HDL RATIO 4.7 (<5.0); CHOLESTEROL 235 mg/dL; CREATININE 0.9 mg/dL (0.6-1.2); GFR - MDRD 86 (>89); GLUCOSE 116 mg/dL (70-100); HDL CHOLESTEROL 50 mg/dL; LDL CHOLESTEROL,CALCULATED 158 mg/dL; LDL/HDL RATIO 3.2 (<3.6); SODIUM 140 mmol/L (135-145); TOTAL PROTEIN 7.3 g/dL (6.7-8.2); VLDL CHOLESTEROL 27 mg/dL
[2019-02-17 19:07] LABS: HB2 TOTAL 14.8 g/dL; HEMOGLOBIN A1C 0.58 g/dL; HEMOGLOBIN A1C % 5.7 % (4.6-6.2)
== END 2019-02-17 10:24 | disposition home or self-care (01) ==
LOC: LAB.F 10:23
PROVIDERS: ATTEND Registered Nurse
DX: E78.5 Hyperlipidemia, unspecified (principal); I48.2 Chronic atrial fibrillation; E11.9 Type 2 diabetes mellitus without complications
CPT/HCPCS: 36415; 80053; 80061; 82043; 83036; 83721; 84443; 85025

== ENCOUNTER 2021-02-16 10:08 | Outpatient (CLI) | payer MEDICAID ==
[2021-02-16 10:27] LABS: BASOPHILS # (AUTO) 0.1 10^3/uL (0.0-0.1); BASOPHILS % (AUTO) 0.8 %; EOSINOPHILS # (AUTO) 0.1 10^3/uL (0.0-0.7); EOSINOPHILS % (AUTO) 0.9 %; HCT - HEMATOCRIT 45.1 % (42.0-52.0); HGB - HEMOGLOBIN 15.1 g/dL (14.0-18.0); LYMPHOCYTES # (AUTO) 1.8 10^3/uL (1.5-3.5); LYMPHOCYTES % (AUTO) 24.1 %; MEAN CORPUSCULAR HEMOGLOBIN 29.3 pg (27.0-31.0); MEAN CORPUSCULAR HGB CONC 33.5 g/dL (32.0-36.0); MEAN CORPUSCULAR VOLUME 87.6 fL (80.0-94.0); MEAN PLATELET VOLUME 8.8 fL (7.4-11.4); MONOCYTES # (AUTO) 0.6 10^3/uL (0.0-1.0); NEUTROPHILS # (AUTO) 4.9 10^3/uL (1.5-6.6); NEUTROPHILS % (AUTO) 65.9 %; PLT - PLATELET COUNT 177 10^3/uL (130-450); RED BLOOD COUNT 5.15 10^6/uL (4.70-6.10); RED CELL DISTRIBUTION WIDTH 13.1 % (12.0-15.0); WHITE BLOOD COUNT 7.5 x10^3/uL (4.8-10.8)
[2021-02-16 10:53] LABS: ALBUMIN 4.6 g/dL (3.2-5.5); ALBUMIN/GLOBULIN RATIO 1.6 (1.0-2.2); ALKALINE PHOSPHATASE 52 IU/L (42-121); ALT ALANINE AMINOTRANSFERASE 34 IU/L (10-60); AST ASPARTATE AMINOTRANSFERASE 24 IU/L (10-42); BILIRUBIN,TOTAL 1.1 mg/dL (0.2-1.0); BUN - BLOOD UREA NITROGEN 18 mg/dL (6-20); CALCIUM 9.4 mg/dL (8.5-10.3); CARBON DIOXIDE - CO2 26 mmol/L (21-32); CHLORIDE 101 mmol/L (101-111); CHOL/HDL RATIO 3.4 (<5.0); CHOLESTEROL 165 mg/dL; CREATININE 1.2 mg/dL (0.6-1.2); GFR - MDRD 61 (>89); GLUCOSE 135 mg/dL (70-100); HDL CHOLESTEROL 48 mg/dL; LDL CHOLESTEROL,CALCULATED 91 mg/dL; LDL/HDL RATIO 1.9 (<3.6); POTASSIUM 4.2 mmol/L (3.5-5.0); SODIUM 139 mmol/L (135-145); TOTAL PROTEIN 7.5 g/dL (6.7-8.2); TRIGLYCERIDES 132 mg/dL; VLDL CHOLESTEROL 26 mg/dL
[2021-02-16 11:01] LABS: THYROID STIMULATING HORMONE 3.03 uIU/mL (0.34-5.60)
[2021-02-16 11:10] LABS: CREATININE,URINE 624.5 mg/dL; MICROALBUM/CREATININE RATIO,UR 3.5 ug/mg (<30.0); MICROALBUMIN,URINE 2.2 mg/dL (0-300.0)
[2021-02-16 12:26] LABS: ESTIMATED AVERAGE GLUCOSE 134 mg/dL (70-100); HEMOGLOBIN A1c% 6.3 % (4.27-6.07)
== END 2021-02-16 10:09 | disposition home or self-care (01) ==
LOC: LAB 10:08
PROVIDERS: ATTEND Registered Nurse
DX: E11.40 Type 2 diabetes mellitus with diabetic neuropathy, unspecified (principal); E78.5 Hyperlipidemia, unspecified; G47.39 Other sleep apnea
CPT/HCPCS: 36415; 80053; 80061; 82043; 82570; 83036; 83721; 84153; 84443; 85025

== ENCOUNTER 2021-03-28 07:47 | Day surgery (SDC) | payer MEDICAID ==
[2021-03-28] MEDS ORDERED: LACTATED RINGERS 1,000 ML IV ONE ×2 (08:36→12:05)
--- NOTE | 2021-03-28 10:23 | ANESTHESIA ---
Pre-Anesthesia VS, & Labs - Diagnosis screening - Procedure colonoscopy Vital Signs: Temp Pulse Resp BP Pulse Ox 36 C L 71 18 129/87 H 99 03/28/21 08:11 03/28/21 08:11 03/28/21 08:11 03/28/21 08:11 03/28/21 08:11 Height: 6 ft Weight (kg): 85 kg Body Mass Index: 25.4 BMI Classification: Overweight - NPO >8 hours - Lab Results Current Lab Results: Laboratory Tests 03/28/21 08:27: POC Whole Bld Glucose 116 H Lab results reviewed: Yes Home Medications and Allergies Home Medications: Ambulatory Orders Atorvastatin Calcium 40 mg PO QPM 03/23/21 Dabigatran [Pradaxa] 150 mg PO BID 03/23/21 Lisinopril [Zestril] 2.5 mg PO DAILY 03/23/21 Loratadine [Claritin] 5 mg PO DAILY PRN 03/23/21 Metoprolol Tartrate [Lopressor] 25 mg PO DAILY 03/23/21 [place] 1 tab PO DAILY 03/23/21 Spironolactone [Aldactone] 25 mg PO DAILY 03/23/21 Triamcinolone Acetonide [Nasacort] 1 spr NS QID PRN 03/23/21 Zinc Gluconate [Zinc] 50 mg PO DAILY 03/23/21 Cholecalciferol (Vitamin D3) [Vitamin D3] 400 unit PO DAILY 03/17/18 [place]-3/Dha/Epa/Fish Oil [Fish Oil 1,000 mg Softgel] 1,000 mg PO DAILY 03/17/18 Vitamin E Acetate [Vitamin E] 400 unit PO DAILY 03/17/18 metFORMIN [Glucophage] 850 mg PO BIDWM 03/17/18 Atorvastatin Calcium 40 mg PO QPM 03/23/21 Dabigatran [Pradaxa] 150 mg PO BID 03/23/21 Lisinopril [Zestril] 2.5 mg PO DAILY 03/23/21 Loratadine [Claritin] 5 mg PO DAILY PRN 03/23/21 Metoprolol Tartrate [Lopressor] 25 mg PO DAILY 03/23/21 [place] 1 tab PO DAILY 03/23/21 Spironolactone [Aldactone] 25 mg PO DAILY 03/23/21 Triamcinolone Acetonide [Nasacort] 1 spr NS QID PRN 03/23/21 Zinc Gluconate [Zinc] 50 mg PO DAILY 03/23/21 Allergies/Adverse Reactions: Allergies Allergy/AdvReac Type Severity Reaction Status Date / Time latex Allergy Anaphylaxis Verified 03/23/21 12:41 Anes History & Medical History - Anesthetic History Anesthesia Complications: reports: No previous complications Family history of Anesthesia Complications: Denies Family history of Malignant Hyperthermia: Denies - Medical History Cardiovascular: reports: Hypertension, High cholesterol, Atrial fibrillation Pulmonary: reports: Sleep apnea, CPAP use Gastrointestinal: reports: None Urinary: reports: Benign prostate hypertrophy, Renal insuffiency Neuro: reports: Peripheral neuropathy Musculoskeletal: reports: None Endocrine/Autoimmune: reports: Type 2 diabetes Skin: reports: Psoriasis Smoking Status: Former smoker - Surgical History General: reports: Colonoscopy Cardiothoracic: reports: Coronary stent, Other Exam General: Alert, Oriented x3, Cooperative, No acute distress Dental: WNL Mouth Openin Fingerbreadth Neck Mobility: Normal Mallampati classification: I Respiratory: Lungs clear, Normal breath sounds, No respiratory distress, No accessory muscle use Plan Anesthesia Type: General, Total IV Consent for Procedure(s) Verified and Reviewed: Yes Code Status: Attempt Resuscitation ASA classification: 3-Severe systemic disease Is this case an emergency?: No
[2021-03-28] MEDS ORDERED: PROPOFOL 200 MG/20 ML VIAL IVP ONE (11:35)
--- NOTE | 2021-03-28 12:13 | ANESTHESIA POST OP EVALUATION ---
Anesthesia Post Eval - Post Anesthesia Eval Vitals: Last Vital Signs Temp 36.4 C L 03/28/21 12:04 Pulse 71 03/28/21 12:11 Resp 18 03/28/21 12:11 BP 90/47 L 03/28/21 12:11 Pulse Ox 99 03/28/21 12:11 CV Function Including HR & BP: Stable Pain Control: Satisfactory Nausea & Vomiting: Negative Mental Status: Baseline Respiratory Status: Airway Patent Hydration Status: Satisfactory Anesthesia Complications: None
[2021-03-28 12:32] VITALS: BP 107/72
== END 2021-03-28 07:48 | disposition home or self-care (01) ==
LOC: SDS 07:47
PROVIDERS: ATTEND Surgery
DX: Z12.11 Encounter for screening for malignant neoplasm of colon (principal); K64.8 Other hemorrhoids; I48.20 Chronic atrial fibrillation, unspecified; G47.39 Other sleep apnea; I25.10 Atherosclerotic heart disease of native coronary artery without angina pectoris; Z79.01 Long term (current) use of anticoagulants
CPT/HCPCS: 45378; J7120

== ENCOUNTER 2021-12-05 22:45 | Outpatient (CLI) | payer MEDICARE, OTHER, MEDICAID ==
--- NOTE | 2021-12-06 09:03 | Ultrasound Report ---
PROCEDURE: Aorta Screening INDICATIONS: PERSONAL HISTORY OF SMOKING TECHNIQUE: Real time scanning was performed of the aorta and iliac arteries, with image documentatio n. COMPARISON: None. FINDINGS: Aorta: Proximal aortic diameter measures 2.6 x 2.7 cm. Mid-aorta measures 2 x 2.1 cm. Distal aorti c diameter is 2.3 x 2.3 cm. Atheromatous plaque of the aorta is seen. Iliac arteries: Right common iliac artery measures 1.1 x 1.1 cm. Left common iliac artery measures 1.1 x 1.1 cm. IMPRESSION: 1. No sonographic evidence of abdominal aortic aneurysm. Reviewed by: Ismael Gallagher MD on 12/06/2021 9:02 AM PDT Approved by: Ismael Gallagher MD on 12/06/2021 9:02 AM PDT Station ID: [id number]
== END 2021-12-05 22:46 | disposition home or self-care (01) ==
LOC: DI 22:45
PROVIDERS: ATTEND Registered Nurse
DX: Z13.6 Encounter for screening for cardiovascular disorders (principal); Z87.891 Personal history of nicotine dependence

== ENCOUNTER 2024-06-12 11:29 | Outpatient (CLI) | payer MEDICARE, OTHER, MEDICAID ==
[2024-06-12 11:50] LABS: BASOPHILS # (AUTO) 0.1 10^3/uL (0.0-0.1); BASOPHILS % (AUTO) 1.1 %; EOSINOPHILS # (AUTO) 0.1 10^3/uL (0.0-0.7); EOSINOPHILS % (AUTO) 1.4 %; HCT - HEMATOCRIT 42.8 % (42.0-52.0); HGB - HEMOGLOBIN 14.9 g/dL (14.0-18.0); LYMPHOCYTES # (AUTO) 1.3 10^3/uL (1.5-3.5); LYMPHOCYTES % (AUTO) 18.9 %; MEAN CORPUSCULAR HEMOGLOBIN 30.2 pg (27.0-31.0); MEAN CORPUSCULAR HGB CONC 34.8 g/dL (32.0-36.0); MEAN CORPUSCULAR VOLUME 86.8 fL (80.0-94.0); MONOCYTES # (AUTO) 0.5 10^3/uL (0.0-1.0); MONOCYTES % (AUTO) 7.4 %; NEUTROPHILS # (AUTO) 4.7 10^3/uL (1.5-6.6); NEUTROPHILS % (AUTO) 70.4 %; PLT - PLATELET COUNT 192 10^3/uL (130-450); RED BLOOD COUNT 4.93 10^6/uL (4.70-6.10); RED CELL DISTRIBUTION WIDTH 12.9 % (12.0-15.0); WHITE BLOOD COUNT 6.7 x10^3/uL (4.8-10.8)
[2024-06-12 12:03] LABS: CREATININE,URINE 231.6 mg/dL; MICROALBUM/CREATININE RATIO,UR 6.9 ug/mg (<30.0); MICROALBUMIN,URINE 1.6 mg/dL
[2024-06-12 12:03] LABS: ALBUMIN 4.5 g/dL (3.2-5.5); ALBUMIN/GLOBULIN RATIO 2.5 (1.0-2.2); ALKALINE PHOSPHATASE 43 IU/L (42-121); ALT ALANINE AMINOTRANSFERASE 25 IU/L (10-60); AST ASPARTATE AMINOTRANSFERASE 16 IU/L (10-42); BILIRUBIN,TOTAL 0.7 mg/dL (0.2-1.0); BUN - BLOOD UREA NITROGEN 15 mg/dL (6-20); CALCIUM 9.5 mg/dL (8.5-10.3); CARBON DIOXIDE - CO2 30 mmol/L (21-32); CHLORIDE 102 mmol/L (101-111); CHOL/HDL RATIO 6.4 (<5.0); CHOLESTEROL 249 mg/dL; GFR - MDRD 75 (>89); GLUCOSE 171 mg/dL (74-104); HDL CHOLESTEROL 39 mg/dL; LDL CHOLESTEROL,CALCULATED 162 mg/dL; LDL/HDL RATIO 4.2 (<3.6); POTASSIUM 3.8 mmol/L (3.5-4.5); SODIUM 139 mmol/L (135-145); TOTAL PROTEIN 6.3 g/dL (6.4-8.9); TRIGLYCERIDES 238 mg/dL; VLDL CHOLESTEROL 48 mg/dL
[2024-06-12 12:13] LABS: THYROID STIMULATING HORMONE 3.63 uIU/mL (0.34-5.60)
[2024-06-12 20:07] LABS: ESTIMATED AVERAGE GLUCOSE 137 mg/dL (70-100); HEMOGLOBIN A1c% 6.4 % (4.27-6.07)
== END 2024-06-12 11:30 | disposition home or self-care (01) ==
LOC: LAB 11:29
PROVIDERS: ATTEND Registered Nurse
DX: E11.9 Type 2 diabetes mellitus without complications (principal); Z12.5 Encounter for screening for malignant neoplasm of prostate; Z13.228 Encounter for screening for other metabolic disorders; Z13.220 Encounter for screening for lipoid disorders; Z13.29 Encounter for screening for other suspected endocrine disorder; Z13.0 Encounter for screening for diseases of the blood and blood-forming organs and certain disorders involving the immune mechanism
CPT/HCPCS: 36415; 80053; 80061; 82043; 82570; 83036; 84443; 85025; G0103; 83721; 84153